=== PATIENT | female | born 1965 | race Caucasian/White ===

== ENCOUNTER 2016-07-09 14:52 | Inpatient (IN) | payer OTHER ==
[~2016-07-09] VITALS: Ht 157.5 cm; Wt 78.0 kg
[~2016-07-09 14:52] MED LIST: FERR325C PO; HYDR-3498 PO; LEVO150T67 PO; LORA-441 PO; MEDR10TA2 PO; METO50TA16 PO; NAPR-688 PO; RANI150T9 PO; SIMV20TA97 PO
[2016-07-09] MEDS ORDERED: NITROGLYCERIN 2% 1 GM OINT PKT TD STA (19:01)
[2016-07-09] MEDS ORDERED: ASPIRIN 81 MG TAB PO STA (19:01)
[2016-07-09] MEDS ORDERED: NITROGLYCERIN (SL) 0.4 MG TAB SL PRN (19:30)
--- NOTE | 2016-07-09 19:36 | RADRPT ---
PROCEDURE: CR, chest CLINICAL INDICATION: Chest pain. TECHNIQUE: AP chest. COMPARISON: Chest, 01/13/2016. FINDINGS: The heart is not enlarged. There is no acute infiltrate in the lungs. No pleural effusion. IMPRESSION: 1. Unremarkable chest x-ray. RPTAT: GG .French Phillips MD, Date Time Electronically viewed and signed by .French Phillips MD, on 07/09/2016 19:36 .Y/
[2016-07-09 19:51] LABS: BASOPHILS % 0.3 % (0.0-2.0); CONDITION 1; EOSINOPHILS # 0.1 10^3/ul (0.0-0.5); EOSINOPHILS % 0.8 % (0.0-7.0); HEMATOCRIT 42.5 % (37.0-47.0); HEMOGLOBIN 14.3 g/dl (12.0-16.0); LYMPHOCYTES # 4.1 10^3/ul (0.8-2.9); LYMPHOCYTES % 27.2 % (15.0-51.0); MEAN CORPUSCULAR HEMOGLOBIN 29.5 pg (29.0-33.0); MEAN CORPUSCULAR HGB CONC 33.6 g/dl (32.0-37.0); MEAN PLATELET VOLUME 7.8 fl (7.4-10.4); MONOCYTE # 1.1 10^3/ul (0.3-0.9); MONOCYTES % 7.2 % (0.0-11.0); NEUTROPHIL # 9.8 10^3/ul (1.6-7.5); NEUTROPHILS % 64.5 % (39.0-77.0); PLATELET COUNT 478 10^3/UL (140-440); RED BLOOD COUNT 4.83 10^6/ul (4.20-5.40); RED CELL DISTRIBUTION WIDTH 13.6 % (11.5-14.5); UNCORRECTED WBC 15.3 10^3/ul (4.8-10.8); WHITE BLOOD COUNT 15.3 10^3/ul (4.8-10.8)
[2016-07-09 19:55] LABS: CHLORIDE 104 mmol/L (97-110)
[2016-07-09 19:56] LABS: POTASSIUM 3.9 mmol/L (3.5-5.1); SODIUM 147 mmol/L (135-144)
[2016-07-09 19:58] LABS: ANION GAP 21 (8-16); CARBON DIOXIDE 26 mmol/L (21-31); CREATININE 0.62 mg/dl (0.44-1.00)
[2016-07-09 19:59] LABS: BLOOD UREA NITROGEN 11 mg/dl (7-20); CALCIUM 9.6 mg/dl (8.4-10.2); GLUCOSE 89 mg/dl (70-220)
[2016-07-09 20:01] LABS: INR 0.94; PARTIAL THROMBOPLASTIN TIME 28.3 Sec (25.0-35.0); PROTIME 12.6 Sec (12.2-14.2)
[2016-07-09 20:15] LABS: TROPONIN-I < 0.012 ng/ml (0.00-0.12)
[2016-07-09] MEDS ORDERED: ONDANSETRON 4 MG INJ IV PRN (20:30)
[2016-07-09] MEDS ORDERED: ACETAMINOPHEN 325 MG TAB PO PRN (20:30)
--- NOTE | 2016-07-09 21:03 | ERA ---
ER Documentation Chief Complaint Date/Time DATE: 07/09/16 TIME: 21:01 Chief Complaint headache and neck pain non traumatic and left arm pain. no trauma HPI Patient is a 51-year-old female with hypertension who presents with chest pain. The patient started with left-sided chest pain and left-sided arm pain for the past few days. She had headache and neck pain as well. Today the pain was worse. The pain is constant. She tried "a pain med" but does not know what it was. Upon review of old medical records this is the patient's third visit to the ER since 2014. Her primary doctor is Dr. Nicole Cuenca. ROS All systems reviewed and are negative except as per history of present illness. Medications Home Meds Reported Medications Metoprolol Succinate* (Toprol XL*) 50 Mg Tab.er.24h, 50 MG PO BID, #30 TAB 01/13/16 Lorazepam* (Ativan*) 0.5 Mg Tablet, 0.5 MG PO DAILY for PRN, #30 TAB 01/13/16 Levothyroxine Sodium* (Levothyroxine Sodium*) 150 Mcg Tablet, 150 MCG PO AC BREAKFAST, TAB 12/05/14 Discontinued Reported Medications Simvastatin* (Zocor*) 20 Mg Tablet, 20 MG PO QHS, #30 TAB 01/13/16 Discontinued Scripts Ranitidine Hcl* (Zantac*) 150 Mg Tablet, 150 MG PO BID Y for EPIGASTRIC PAIN, # 30 TAB Prov:KASANDRACRISTHIAN DO 01/13/16 Hydrocodone Bit-Acetaminophen* ([place]*) 5-325 Mg Tab, 1 TAB PO Q6 Y for PAIN, # 7 TAB Prov:KASANDRACRISTHIAN DO 01/13/16 Naproxen* (Naproxen*) 500 Mg Tablet, 500 MG PO BID, #20 TAB Prov:KASANDRACRISTHIAN DO 01/13/16 Medroxyprogesterone Acetate* (Provera*) 10 Mg Tablet, 10 MG PO DAILY for 5 Days , TAB Prov:ALIX RIVERA MD 12/05/14 Ferrous Sulfate (Iron) 325 Mg Capsr, 325 MG PO BID, #60 Prov:ALIX RIVERA MD 12/05/14 Allergies Allergies: Coded Allergies: No Known Allergy (Unverified , 07/09/16) PMhx/Soc Medical and Surgical Hx: pt denies Surgical Hx History of Surgery: No Anesthesia Reaction: No Hx Neurological Disorder: No Hx Respiratory Disorders: No Hx Cardiac Disorders: Yes (HTN,CHOLESTEROL) Hx Psychiatric Problems: No Hx Miscellaneous Medical Probl: Yes (ANXIETY) Hx Alcohol Use: No Hx Substance Use: No Hx Tobacco Use: No Smoking Status: Never smoker FmHx Family History: No coronary disease, No diabetes Physical Exam Vitals Vital Signs Date Time Temp Pulse Resp B/P Pulse Ox O2 Delivery O2 Flow Rate FiO2 07/09/16 19:05 98.5 114 20 185/79 97 Room Air 07/09/16 14:59 98.5 116 20 190/81 98 Physical Exam Const: Mild distress secondary to pain Head: Atraumatic Eyes: Normal Conjunctiva ENT: Normal External Ears, Nose and Mouth. Neck: Full range of motion..~ No meningismus. Resp: Clear to auscultation bilaterally Cardio: Regular rate and rhythm, no murmurs Abd: Soft, non tender, non distended. Normal bowel sounds Skin: No petechiae or rashes Back: No midline or flank tenderness Ext: No cyanosis, or edema Neur: Awake and alert Psych: Normal Mood and Affect Result Diagram: 07/09/16193407/09/161934 Results 24 hrs Laboratory Tests Test 07/09/16 19:35 Activated Partial Thromboplast Time 28.3Sec Anion Gap 21 Basophils # 0.010^3/ul Basophils % 0.3% Blood Urea Nitrogen 11mg/dl Calcium Level 9.6mg/dl Carbon Dioxide Level 26mmol/L Chloride Level 104mmol/L Creatinine 0.62mg/dl Eosinophils # 0.110^3/ul Eosinophils % 0.8% Glucose Level 89mg/dl Hematocrit 42.5% Hemoglobin 14.3g/dl INR International Normalized Ratio 0.94 Lymphocytes # 4.110^3/ul Lymphocytes % 27.2% Mean Corpuscular Hemoglobin 29.5pg Mean Corpuscular Hemoglobin Concent 33.6g/dl Mean Corpuscular Volume 88.0fl Mean Platelet Volume 7.8fl Monocytes # 1.110^3/ul Monocytes % 7.2% Neutrophils # 9.810^3/ul Neutrophils % 64.5% Nucleated Red Blood Cells # 0.010^3/ul Nucleated Red Blood Cells % 0.0/100WBC Platelet Count 72724^3/UL Potassium Level 3.9mmol/L Prothrombin Time 12.6Sec Prothrombin Time Ratio 1.0 Red Blood Count 4.8310^6/ul Red Cell Distribution Width 13.6% Sodium Level 147mmol/L Troponin I < 0.012ng/ml White Blood Count 15.310^3/ul Current Medications Medications (Trade) Dose Ordered Sig/Terry Route PRN Reason Start Time Stop Time Status Last Admin Dose Admin Aspirin (Aspirin) 162 mg ONCE STAT PO 07/09/16 19:01 07/09/16 19:02 DC 07/09/16 19:49 Nitroglycerin (Nitroglycerin 2% Oint) 1 inch ONCE STAT TD 07/09/16 19:01 07/09/16 19:02 DC 07/09/16 19:50 Nitroglycerin (Nitroglycerin (Sl Tab) 0.4 Mg) 1 tab Q5M UP TO 3 DOSES PRN SL CHEST PAIN 07/09/16 19:30 Ondansetron HCl (Zofran Inj) 4 mg ER BRIDGE PRN IV NAUSEA AND/OR VOMITING 07/09/16 20:30 07/10/16 20:29 Acetaminophen (Tylenol Tab) 650 mg ER BRIDGE PRN PO MILD PAIN/FEVER 07/09/16 20:30 07/10/16 20:29 Procedures/MDM EKG read by me: Rate/Rhythm: Sinus tachycardia at a rate of 118 Intervals: Normal Impression: Sinus tachycardia without evidence of ischemia Chest x-ray negative per radiology. Patient is a 51-year-old female with hypertension who presents with chest pain and left-sided arm pain. I am concerned for possible acute coronary syndrome. The patient was given aspirin and nitroglycerin. She will be admitted to Dr. Sheets from the panel team as her primary doctor does not admit here. The patient will be admitted to a telemetry bed. At this point I doubt pneumonia, pneumothorax, pulmonary embolism, or aortic dissection. Departure Diagnosis: Primary Impression: Chest pain Qualified Code: R07.9 - Chest pain, unspecified type Condition: GLADYS Loaiza MD Jul 09, 2016 21:03
[2016-07-09 22:30] VITALS: TEMP 98.5
[2016-07-09 22:54] VITALS: PULSE 97; Ht 157.5 cm; Wt 78.0 kg
[2016-07-10] VITALS (12 sets, daily range): BP systolic 109–127; BP diastolic 64–74; PULSE 78–106; RESP 16–18
[2016-07-10 02:21] LABS: CREATINE KINASE 92 IU/L (23-200)
[2016-07-10 02:30] LABS: CK-MB 0.57 ng/ml (0.0-2.4)
[2016-07-10 02:38] LABS: TROPONIN-I < 0.012 ng/ml (0.00-0.12)
[2016-07-10] MEDS ORDERED: ALBUTEROL/IPRATROPIUM (NEB) 3 ML AMP HHN PRN (04:30)
[2016-07-10] MEDS ORDERED: LORAZEPAM 0.5 MG TAB PO PRN (04:30)
[2016-07-10] MEDS ORDERED: morphine 2 MG INJ IV PRN (04:30)
[2016-07-10] MEDS ORDERED: NACL 0.9% 3 ML SYG IV SCH (04:30)
[2016-07-10] MEDS ORDERED: ONDANSETRON 4 MG INJ IV PRN (04:30)
[2016-07-10] MEDS ORDERED: ACETAMINOPHEN 325 MG TAB PO PRN (04:30)
[2016-07-10] MEDS ORDERED: NITROGLYCERIN (SL) 0.4 MG TAB SL PRN (04:30)
--- NOTE | 2016-07-10 06:58 | HP ---
DATE OF ADMISSION: 07/09/2016 TIME SEEN: 2300 CHIEF COMPLAINT: Chest pain. HISTORY OF PRESENT ILLNESS: The patient is a 51-year-old female with a history of hypertension, dys lipidemia and hypothyroidism, who presented to the emergency department with a chief complaint of ch est pain. Pain is left-sided, described as sharp and tightness, is nonradiating. She reports that the pain started 3 weeks ago and has been progressively getting worse. The patient is unsure if the re is any exertional components to her chest pain. She denied shortness of breath, palpitations, ab dominal pain, urinary symptoms or lightheadedness. She did, however, report headache and neck pain. She denied trauma. Of note the patient was seen here in the ER about 6 months ago for chest pain and was discharged from the ER as it was felt it was not cardiac because pain was reproducible on pa lpation. Her first troponin is negative and EKG shows sinus tachycardia with a rate of 118. When she presented to the ER today, her blood pressure was 190/81, heart rate 116, respiratory rate 20, temperature 98.5, oxygen saturation 98% on room air. Laboratory value shows a WBC of 15.3. Sod ium 147. Chest x-ray was read as unremarkable. She was given aspirin and nitroglycerin, Tylenol an d Zofran while she was in the ER. REVIEW OF SYSTEMS: A 12-point review of systems was performed and is negative except as mentioned i n HPI. PAST MEDICAL HISTORY: As per HPI. PAST SURGICAL HISTORY: Denies. SOCIAL HISTORY: Denies history of tobacco, alcohol or illicit drug use. ALLERGIES: NO KNOWN DRUG ALLERGIES. HOME MEDICATIONS: 1. Toprol-XL. 2. Levothyroxine. 3. Ativan. PHYSICAL EXAMINATION: VITAL SIGNS: Blood pressure 170/82, heart rate 105, respiratory rate 20, temperature 98.5, oxygen s aturation 98% on room air. GENERAL: No acute distress, answering questions appropriately, able to speak in full sentences. HEENT: Normocephalic, atraumatic. No scleral icterus. Pupils are reactive to light. Extraocular muscles intact. CARDIOVASCULAR: Tachycardic with regular rhythm. LUNGS: Clear. ABDOMEN: Soft, nontender, nondistended. Positive bowel sounds. EXTREMITIES: No edema. NEUROLOGIC: No focal deficits. LABORATORY: WBC 15.3. Sodium 147, otherwise CBC and BMP are within normal limits. First troponin is negative. IMPRESSION: 1. Chest pain, need to rule out acute coronary syndrome. 2. Hypertensive urgency. 3. Systemic inflammatory response syndrome, as evidenced by tachycardia and leukocytosis. 4. Mild hypernatremia. PLAN: Continue telemetry monitoring. She will be continued with her home beta abiodun with adjustm ent as needed. She will also be placed on aspirin, statin, oxygen and as needed nitroglycerin and m orphine. Will obtain a 2D echo and will trend her troponins. Given the presentation of SIRS, will send a urinalysis and urine culture and will consider a blood culture as well. Will continue her ho me Synthroid and will check her TSH as well as a free T4 in the morning. Abnormality of her thyroid function could also explain the sinus tachycardia. Further workup and management per clinical course. Dictated By: ROMAINE FERRARA/DIMPLE Conf#: [id number] DID#: [id number]
[2016-07-10 07:55] LABS: CREATINE KINASE 51 IU/L (23-200)
[2016-07-10 08:05] LABS: CK-MB < 0.22 ng/ml (0.0-2.4)
[2016-07-10 08:09] LABS: TROPONIN-I < 0.010 ng/ml (0.00-0.12)
[2016-07-10 08:23] LABS: BASOPHIL # 0.1 10^3/ul (0.0-0.1); BASOPHILS % 0.5 % (0.0-2.0); EOSINOPHILS # 0.1 10^3/ul (0.0-0.5); EOSINOPHILS % 0.5 % (0.0-7.0); HEMATOCRIT 38.4 % (37.0-47.0); HEMOGLOBIN 13.1 g/dl (12.0-16.0); LYMPHOCYTES % 17.7 % (15.0-51.0); MEAN CORPUSCULAR HEMOGLOBIN 30.1 pg (29.0-33.0); MEAN CORPUSCULAR HGB CONC 34.3 g/dl (32.0-37.0); MEAN CORPUSCULAR VOLUME 87.7 fl (82.0-101.0); MEAN PLATELET VOLUME 7.9 fl (7.4-10.4); MONOCYTE # 0.9 10^3/ul (0.3-0.9); MONOCYTES % 7.5 % (0.0-11.0); NEUTROPHIL # 8.5 10^3/ul (1.6-7.5); NEUTROPHILS % 73.8 % (39.0-77.0); PLATELET COUNT 456 10^3/UL (140-440); RED BLOOD COUNT 4.37 10^6/ul (4.20-5.40); RED CELL DISTRIBUTION WIDTH 12.7 % (11.5-14.5); UNCORRECTED WBC 11.6 10^3/ul (4.8-10.8); WHITE BLOOD COUNT 11.6 10^3/ul (4.8-10.8)
[2016-07-10 08:28] LABS: ALBUMIN 4.4 g/dl (3.3-4.9)
[2016-07-10 08:29] LABS: POTASSIUM 3.9 mmol/L (3.5-5.1)
[2016-07-10 08:31] LABS: ALBUMIN/GLOBULIN RATIO 1.12; BILIRUBIN,INDIRECT 0.7 mg/dl (0-1.1); BILIRUBIN,TOTAL 0.7 mg/dl (0.2-1.3); CALCIUM 9.2 mg/dl (8.4-10.2); CREATININE 0.62 mg/dl (0.44-1.00); TOTAL PROTEIN 8.3 g/dl (6.1-8.1)
[2016-07-10 08:32] LABS: CHOL/HDL RATIO 6.9 RATIO; MAGNESIUM 2.1 mg/dl (1.7-2.5)
[2016-07-10 08:39] LABS: ADD UMIC YES; URINE BILIRUBIN (Dip) NEGATIVE (NEGATIVE); URINE BLOOD (Dip) TRACE (NEGATIVE); URINE COLOR LT. YELLOW (YELLOW); URINE GLUCOSE (Dip) NEGATIVE (NEGATIVE); URINE KETONES (Dip) NEGATIVE (NEGATIVE); URINE LEUKOCYTE ESTERASE (Dip) 2+ (NEGATIVE); URINE NITRITE (Dip) NEGATIVE (NEGATIVE); URINE TOTAL PROTEIN (Dip) NEGATIVE (NEGATIVE); URINE UROBILINOGEN (Dip) 0.2 E.U./dL (0.1-1.0)
[2016-07-10 08:47] LABS: CONDITION 1
[2016-07-10 08:58] LABS: THYROID STIMULATING HORMONE 0.018 MIU/L (0.465-4.680)
[2016-07-10] MEDS: LEVOTHYROXINE 150 MCG TAB PO SCH (09:03)
[2016-07-10] MEDS: METOPROLOL (XL) 50 MG TAB PO SCH ×2 (09:05→20:38)
[2016-07-10] MEDS: ENOXAPARIN 40 MG/0.4 ML SYG SC SCH (09:05)
[2016-07-10 09:56] LABS: SQUAMOUS EPITHELIAL CELL,UR FEW; URINE RBCS 0-2 /HPF (0)
[2016-07-10 09:57] LABS: BACTERIA,URINE MODERATE; MUCUS,URINE FEW
--- NOTE | 2016-07-10 10:27 | PN ---
Date/Time of Note Date/Time of Note DATE: 07/10/16 TIME: 10:19 Assessment/Plan VTE Prophylaxis VTE Prophylaxis Intervention: LMWH Lines/Catheters IV [facility]ter Type [facility]from [facility] [place] Assessment/Plan Chief Complaint/Hosp Course Assessment and plan 1. Chest pain. Patient still reports having some intermittent chest pain on her left side that radiates to her arm. She also does report having some chest pain on exertion. We will get machine buffer to follow. Follow up on echocardiogram. 2. Hypertensive urgency. Continue on antihypertensives and we'll adjust as needed 3. Mild sepsis secondary to UTI. Patient noted with leukocytosis as well as elevated heart rate. Patient also noted with positive leukocyte esterase test with moderate bacteria seen in the urine. We'll follow-up on urine culture. Remains afebrile at present. We'll provide antibiotics according to culture 4. Obesity. Weight reduction advised 5. Low TSH. Follow up on T3 and T4 6. Dyslipidemia. Continue on statin medication DVT prophylaxis: Lovenox GERD prophylaxis: PPI Discussed plan of care with Dr. Mckeon Problems: Subjective 24 Hr Interval Summary Free Text/Dictation Still reports having some intermittent chest pain. Does report that he goes to her left arm at times. Family at bedside Exam/Review of Systems Vital Signs Vitals Vital Signs Date Time Temp Pulse Resp B/P Pulse Ox O2 Delivery O2 Flow Rate FiO2 07/10/16 08:19 106 07/10/16 08:15 98.4 17 127/74 96 07/10/16 04:12 Room Air Exam General: No acute signs or symptoms of distress Eyes: pupils equal round, Anicteric sclera Neck: Supple nontender, no JVD Cardiac: S1, S2 auscultated, regular rhythm and rate Pulmonary: No coarse rhonchi or breathing auscultated GI: Abdomen soft nontender nondistended, bowel sounds active Extremities: No edema bilateral lower extremities Skin: Clean dry and intact Neurologic: Alert to person place and time and situation Results Result Diagram: 07/10/16 0652 07/10/16 0652 Results 24 hrs Laboratory Tests Test 07/09/16 19:35 07/10/16 01:42 07/10/16 06:05 07/10/16 06:44 Activated Partial Thromboplast Time 28.3 Anion Gap 21 H Basophils # 0.0 Basophils % 0.3 Blood Urea Nitrogen 11 Calcium Level 9.6 Carbon Dioxide Level 26 Chloride Level 104 Creatinine 0.62 Eosinophils # 0.1 Eosinophils % 0.8 Glucose Level 89 Hematocrit 42.5 Hemoglobin 14.3 INR International Normalized Ratio 0.94 Lymphocytes # 4.1 H Lymphocytes % 27.2 Mean Corpuscular Hemoglobin 29.5 Mean Corpuscular Hemoglobin Concent 33.6 Mean Corpuscular Volume 88.0 Mean Platelet Volume 7.8 Monocytes # 1.1 H Monocytes % 7.2 Neutrophils # 9.8 H Neutrophils % 64.5 Nucleated Red Blood Cells # 0.0 Nucleated Red Blood Cells % 0.0 Platelet Count 478 H Potassium Level 3.9 Prothrombin Time 12.6 Prothrombin Time Ratio 1.0 Red Blood Count 4.83 Red Cell Distribution Width 13.6 Sodium Level 147 H Troponin I < 0.012 < 0.012 < 0.010 White Blood Count 15.3 #H Creatine Kinase 92 51 Creatine Kinase Index 0.6 0.4 Creatinine Kinase MB (Mass) 0.57 < 0.22 Urine Bacteria MODERATE Urine Bilirubin NEGATIVE Urine Clarity SLIGHTLY CLOUDY Urine Color LT. YELLOW Urine Glucose NEGATIVE Urine Hemoglobin TRACE Urine Ketones NEGATIVE Urine Leukocyte Esterase 2+ H Urine Microscopic RBC 0-2 Urine Microscopic WBC 2-5 Urine Mucus FEW Urine Nitrite NEGATIVE Urine Specific [place] 1.025 Urine Squamous Epithelial Cells FEW Urine Total Protein NEGATIVE Urine Urobilinogen 0.2 E.U./dL Urine pH 6.0 Test 07/10/16 06:52 Alanine Aminotransferase (ALT/SGPT) 29 Albumin 4.4 Albumin/Globulin Ratio 1.12 Alkaline Phosphatase 107 Anion Gap 18 H Aspartate Amino Transf (AST/SGOT) 29 Basophils # 0.1 Basophils % 0.5 Blood Urea Nitrogen 12 Calcium Level 9.2 Carbon Dioxide Level 28 Chloride Level 103 Cholesterol Level 208 H Cholesterol/HDL Ratio 6.9 Creatinine 0.62 Direct Bilirubin 0.00 Eosinophils # 0.1 Eosinophils % 0.5 Globulin 3.90 H Glucose Level 90 HDL Cholesterol 30 L Hematocrit 38.4 Hemoglobin 13.1 Hemoglobin A1c 5.3 Indirect Bilirubin 0.7 LDL Cholesterol, Calculated 152 Lymphocytes # 2.0 Lymphocytes % 17.7 Magnesium Level 2.1 Mean Corpuscular Hemoglobin 30.1 Mean Corpuscular Hemoglobin Concent 34.3 Mean Corpuscular Volume 87.7 Mean Platelet Volume 7.9 Monocytes # 0.9 Monocytes % 7.5 Neutrophils # 8.5 H Neutrophils % 73.8 Nucleated Red Blood Cells # 0.0 Nucleated Red Blood Cells % 0.0 Platelet Count 456 H Potassium Level 3.9 Red Blood Count 4.37 Red Cell Distribution Width 12.7 Sodium Level 145 H Thyroid Stimulating Hormone (TSH) 0.018 L Total Bilirubin 0.7 Total Protein 8.3 H Triglycerides Level 129 White Blood Count 11.6 #H Medications Medications Current Medications Lorazepam (Ativan) 0.5 mg Q8H PRN PO ANXIETY; Start 07/10/16 at 04:30 Ondansetron HCl (Zofran Inj) 4 mg Q6H PRN IV NAUSEA AND/OR VOMITING; Start at 04:30 Nitroglycerin (Nitroglycerin (Sl Tab) 0.4 Mg) 1 tab Q5M PRN SL CHEST PAIN; Start 07/10/16 at 04:30 Acetaminophen (Tylenol Tab) 650 mg Q6H PRN PO PAIN LEVEL 1-3 OR FEVER Last administered on 07/10/16 09:04; Admin Dose 650 MG; Start 07/10/16 at 04:30 Morphine Sulfate (morphine) 2 mg Q4H PRN IV PAIN LEVEL 7-10; Start 07/10/16 at 04:30 Enoxaparin Sodium (Lovenox) 40 mg DAILY SC Last administered on 07/10/16 09:05 ; Admin Dose 40 MG; Start 07/10/16 at 09:00 Metoprolol Succinate (Toprol Xl) 50 mg BID PO Last administered on 07/10/16 09 :05; Admin Dose 50 MG; Start 07/10/16 at 09:00 Atorvastatin Calcium (Lipitor) 20 mg HS PO ; Start 07/10/16 at 21:00 CHELSEY CHURCH Jul 10, 2016 10:27
--- NOTE | 2016-07-10 11:17 | RADRPT ---
Echocardiogram Report Patient Name: MICHAEL OSORIO Gender: Female Date: 1965 Study Date: 10-Jul-2016 Musical Instrument Maker: Indra Freed [facility] Location: [id number] Ref. Physician: ROMAINE GARCIA Quality: Good Procedures: Transthoracic echocardiogram with complete 2D, M-Mode, and doppler examination. Indications: Chest Pain. Shortness of breath. 2D/M Mode Doppler Measurement Value Normal Ranges Measurement Value Normal Ranges LVIDd 2D 4.1 3.5 - 5.6 cm AV Peak Eflix 1.3 m/sec LVIDs 2D 2.5 2.1 - 4.1 cm AV Peak PG 6.3 mmHg LVPWd 2D 0.8 0.6 - 1.1 cm LVOT Peak Felix 1.1 m/sec IVSd 2D 0.8 0.6 - 1.1 cm LVOT Peak PG 5.1 mmHg AoR Diam 2D 2.5 2.0 - 3.7 cm EDV 2D 75.3 cm3 ESV 2D 14.8 cm3 LA Dimen 2D 2.7 2.3 - 4.0 cm Findings Left Ventricle: Normal left ventricular systolic function. Normal left ventricular cavity size. Normal left ventricular wall thickness. Ejection fraction is visually estimated at 65 %. Abnormal Diastolic Function. Right Ventricle: Normal right ventricular size. Normal right ventricular systolic function. Left Atrium: The left atrium is normal in size. Right Atrium: The right atrium is normal in size. Mitral Valve: Normal appearance and function of the mitral valve with trace physiologic regurgitation. Aortic Valve: Normal appearance of the aortic valve. No significant aortic stenosis or insufficiency. Tricuspid Valve: Normal appearance of the tricuspid valve. Unable to obtain RVSP due to minimal presence of tricuspid regurgitation. Pericardium: Normal pericardium with no significant pericardial effusion. Aorta: Normal aortic root. IVC: Normal size and normal respiratory collapse consistent with normal right atrial pressure. Conclusions Normal left ventricular systolic function. Normal left ventricular cavity size. Normal left ventricular wall thickness. Ejection fraction is visually estimated at 65 %. Abnormal Diastolic Function. Normal right ventricular size. Normal right ventricular systolic function. The left atrium is normal in size. The right atrium is normal in size. No significant valvular stenosis or regurgitation seen. Normal pericardium with no significant pericardial effusion. Electronically Signed By: Mukund Iyer 10-Jul-2016 11:16:46 -0800 Patient Name: MICHAEL OSORIO Study Date: 10-Jul-2016 [id number]
--- NOTE | 2016-07-10 11:38 | CONS ---
Date/Time of Note Date/Time of Note DATE: 07/10/16 TIME: 11:31 Assessment/Plan Assessment/Plan Additional Assessment/Plan Chest wall, shoulder and wrist pain Preserved ejection fraction Hypertension Leukocytosis with abnormal urinalysis -Our patient's pain appears chest wall and shoulder and wrist pain. Pain is exacerbated with palpation and movements. No exertional chest pain or shortness of breath. Serial cardiac enzymes have remained negative, echocardiogram is unremarkable and ECG within normal limits. Would evaluate other noncardiac causes of patient's symptoms. No further inpatient cardiac workup needed at the current time. Consultation Date/Type/Reason Admit Date/Time Jul 09, 2016 at 20:18 Type of Consultation: cv Reason for Consultation Chest pain Hx of Present Illness This is a 51 year old female with past medical history of hypertension, thyroid dysfunction, anxiety who presents with off-and-on sharp left sided chest pain, mid chest pain, bilateral shoulder and bilateral wrist pain. Symptoms are worse with left arm movements, leaning on left side. Symptoms are relieved with leaning on right side. Exertion does not worsen or improve symptoms. There is no associated shortness of breath, dizziness or lightheadedness. She was told in the past that she has inflammation of her muscles and bones. She has been treated with medications in the past with improvement of the symptoms. She denies any abdominal pain, nausea or dizziness. She does complain of intermittent urinary symptoms of burning. 12 point review of systems was performed with all pertinent positives and negatives mentioned above and all else is negative Past Medical History Anxiety Medical History: hypertension, hypothyroid Past Surgical History Past Surgical Hx: no surgical history Family History Significant Family History: no pertinent family hx Social History Alcohol Use: none Smoking Status: Never smoker Exam/Review of Systems Vital Signs Vitals Vital Signs Date Time Temp Pulse Resp B/P Pulse Ox O2 Delivery O2 Flow Rate FiO2 07/10/16 08:19 106 07/10/16 08:15 98.4 17 127/74 96 07/10/16 04:12 Room Air Exam No apparent distress Constitutional: alert, obese, oriented Head: normocephalic Neck: supple Respiratory: clear to auscultation, normal air movement Cardiovascular: other (S1-S2 heard, no murmurs appreciated), regular rate and rhythm Gastrointestinal: bowel sounds, non-tender, soft Musculoskeletal: other (tenderness to palpation left side of chest wall, bilateral shoulders and bilateral wrists. Pain with movement of bilateral arms.) Extremities: other (no edema) Results Result Diagram: 07/10/16 0652 07/10/16 0652 Results 24 hrs Laboratory Tests Test 07/09/16 19:35 07/10/16 01:42 07/10/16 06:05 07/10/16 06:44 Activated Partial Thromboplast Time 28.3 Anion Gap 21 H Basophils # 0.0 Basophils % 0.3 Blood Urea Nitrogen 11 Calcium Level 9.6 Carbon Dioxide Level 26 Chloride Level 104 Creatinine 0.62 Eosinophils # 0.1 Eosinophils % 0.8 Glucose Level 89 Hematocrit 42.5 Hemoglobin 14.3 INR International Normalized Ratio 0.94 Lymphocytes # 4.1 H Lymphocytes % 27.2 Mean Corpuscular Hemoglobin 29.5 Mean Corpuscular Hemoglobin Concent 33.6 Mean Corpuscular Volume 88.0 Mean Platelet Volume 7.8 Monocytes # 1.1 H Monocytes % 7.2 Neutrophils # 9.8 H Neutrophils % 64.5 Nucleated Red Blood Cells # 0.0 Nucleated Red Blood Cells % 0.0 Platelet Count 478 H Potassium Level 3.9 Prothrombin Time 12.6 Prothrombin Time Ratio 1.0 Red Blood Count 4.83 Red Cell Distribution Width 13.6 Sodium Level 147 H Troponin I < 0.012 < 0.012 < 0.010 White Blood Count 15.3 #H Creatine Kinase 92 51 Creatine Kinase Index 0.6 0.4 Creatinine Kinase MB (Mass) 0.57 < 0.22 Urine Bacteria MODERATE Urine Bilirubin NEGATIVE Urine Clarity SLIGHTLY CLOUDY Urine Color LT. YELLOW Urine Glucose NEGATIVE Urine Hemoglobin TRACE Urine Ketones NEGATIVE Urine Leukocyte Esterase 2+ H Urine Microscopic RBC 0-2 Urine Microscopic WBC 2-5 Urine Mucus FEW Urine Nitrite NEGATIVE Urine Specific [place] 1.025 Urine Squamous Epithelial Cells FEW Urine Total Protein NEGATIVE Urine Urobilinogen 0.2 E.U./dL Urine pH 6.0 Test 07/10/16 06:52 Alanine Aminotransferase (ALT/SGPT) 29 Albumin 4.4 Albumin/Globulin Ratio 1.12 Alkaline Phosphatase 107 Anion Gap 18 H Aspartate Amino Transf (AST/SGOT) 29 Basophils # 0.1 Basophils % 0.5 Blood Urea Nitrogen 12 Calcium Level 9.2 Carbon Dioxide Level 28 Chloride Level 103 Cholesterol Level 208 H Cholesterol/HDL Ratio 6.9 Creatinine 0.62 Direct Bilirubin 0.00 Eosinophils # 0.1 Eosinophils % 0.5 Globulin 3.90 H Glucose Level 90 HDL Cholesterol 30 L Hematocrit 38.4 Hemoglobin 13.1 Hemoglobin A1c 5.3 Indirect Bilirubin 0.7 LDL Cholesterol, Calculated 152 Lymphocytes # 2.0 Lymphocytes % 17.7 Magnesium Level 2.1 Mean Corpuscular Hemoglobin 30.1 Mean Corpuscular Hemoglobin Concent 34.3 Mean Corpuscular Volume 87.7 Mean Platelet Volume 7.9 Monocytes # 0.9 Monocytes % 7.5 Neutrophils # 8.5 H Neutrophils % 73.8 Nucleated Red Blood Cells # 0.0 Nucleated Red Blood Cells % 0.0 Platelet Count 456 H Potassium Level 3.9 Red Blood Count 4.37 Red Cell Distribution Width 12.7 Sodium Level 145 H Thyroid Stimulating Hormone (TSH) 0.018 L Total Bilirubin 0.7 Total Protein 8.3 H Triglycerides Level 129 White Blood Count 11.6 #H Medications Medications Current Medications Lorazepam (Ativan) 0.5 mg Q8H PRN PO ANXIETY; Start 07/10/16 at 04:30 Ondansetron HCl (Zofran Inj) 4 mg Q6H PRN IV NAUSEA AND/OR VOMITING; Start at 04:30 Nitroglycerin (Nitroglycerin (Sl Tab) 0.4 Mg) 1 tab Q5M PRN SL CHEST PAIN; Start 07/10/16 at 04:30 Acetaminophen (Tylenol Tab) 650 mg Q6H PRN PO PAIN LEVEL 1-3 OR FEVER Last administered on 07/10/16 09:04; Admin Dose 650 MG; Start 07/10/16 at 04:30 Morphine Sulfate (morphine) 2 mg Q4H PRN IV PAIN LEVEL 7-10; Start 07/10/16 at 04:30 Enoxaparin Sodium (Lovenox) 40 mg DAILY SC Last administered on 07/10/16 09:05 ; Admin Dose 40 MG; Start 07/10/16 at 09:00 Metoprolol Succinate (Toprol Xl) 50 mg BID PO Last administered on 07/10/16 09 :05; Admin Dose 50 MG; Start 07/10/16 at 09:00 Atorvastatin Calcium (Lipitor) 20 mg HS PO ; Start 07/10/16 at 21:00 Fish Oil (Fish Oil) 1,000 mg BID PO ; Start 07/10/16 at 11:00 Pantoprazole (Protonix Tab) 40 mg DAILY@06 PO ; Start 07/10/16 at 11:00 Procedures Procedures ECG with sinus tachycardia at 118 bpm, QRS 70 ms, no significant ischemic STT wave abnormalities Mukund Iyer DO Jul 10, 2016 11:38
[2016-07-10 11:50] LABS: T3 UPTAKE 39.6 % (23.5-40.5)
[2016-07-10 11:51] LABS: FREE T3 4.83 pg/ml (2.77-5.27)
[2016-07-10] MEDS: FISH OIL 1,000 MG CAP PO SCH ×2 (12:09→20:36)
[2016-07-10] MEDS: PANTOPRAZOLE (EC) 40 MG TAB PO SCH (12:09)
[2016-07-10] MEDS ORDERED: DOCUSATE SODIUM 100 MG CAP PO PRN (15:30)
[2016-07-10] MEDS ORDERED: ATORVASTATIN 20 MG TAB PO SCH (21:00)
[2016-07-11] VITALS (9 sets, daily range): BP systolic 110–127; BP diastolic 62–75; PULSE 58–90; RESP 18–20
[2016-07-11] MEDS: LEVOTHYROXINE 150 MCG TAB PO SCH (06:10)
[2016-07-11] MEDS: PANTOPRAZOLE (EC) 40 MG TAB PO SCH (06:10)
[2016-07-11 07:50] LABS: BASOPHIL # 0.1 10^3/ul (0.0-0.1); BASOPHILS % 0.6 % (0.0-2.0); EOSINOPHILS # 0.1 10^3/ul (0.0-0.5); EOSINOPHILS % 0.7 % (0.0-7.0); HEMOGLOBIN 13.6 g/dl (12.0-16.0); LYMPHOCYTES # 2.7 10^3/ul (0.8-2.9); LYMPHOCYTES % 23.5 % (15.0-51.0); MEAN CORPUSCULAR HEMOGLOBIN 29.7 pg (29.0-33.0); MEAN CORPUSCULAR HGB CONC 33.9 g/dl (32.0-37.0); MEAN CORPUSCULAR VOLUME 87.4 fl (82.0-101.0); MEAN PLATELET VOLUME 7.7 fl (7.4-10.4); MONOCYTE # 0.9 10^3/ul (0.3-0.9); MONOCYTES % 8.1 % (0.0-11.0); NEUTROPHIL # 7.7 10^3/ul (1.6-7.5); NEUTROPHILS % 67.1 % (39.0-77.0); PLATELET COUNT 468 10^3/UL (140-440); RED BLOOD COUNT 4.58 10^6/ul (4.20-5.40); RED CELL DISTRIBUTION WIDTH 13.1 % (11.5-14.5); UNCORRECTED WBC 11.4 10^3/ul (4.8-10.8); WHITE BLOOD COUNT 11.4 10^3/ul (4.8-10.8)
[2016-07-11 07:51] LABS: POTASSIUM 4.3 mmol/L (3.5-5.1)
[2016-07-11 07:54] LABS: CREATININE 0.7 mg/dl (0.44-1.00)
[2016-07-11 07:55] LABS: CALCIUM 9.3 mg/dl (8.4-10.2); MAGNESIUM 2.3 mg/dl (1.7-2.5); PHOSPHORUS 4.3 mg/dl (2.5-4.9)
[2016-07-11 07:56] LABS: CONDITION 1
[2016-07-11] MEDS: METOPROLOL (XL) 50 MG TAB PO SCH (09:04)
[2016-07-11] MEDS: FISH OIL 1,000 MG CAP PO SCH (09:04)
[2016-07-11] MEDS: ENOXAPARIN 40 MG/0.4 ML SYG SC SCH (09:07)
[2016-07-11] MEDS ORDERED: ATOR20TA65 PO (14:40)
[2016-07-11] MEDS ORDERED: METO50TA16 PO (14:40)
[2016-07-11] MEDS ORDERED: CIPR500T4 PO (14:40)
[2016-07-11] MEDS ORDERED: OMEG1CAP55 PO (14:40)
--- NOTE | 2016-07-11 14:46 | PDOCDIS ---
Discharge Instructions DIAGNOSIS Discharge Diagnosis: 1. chest pain 2. hypertensive urgency 3. uti 4. obesity 5. dyslipidemia CONDITION Patient Condition: Stable HOME CARE INSTRUCTIONS: Special Diet: cardiac FOLLOW UP/APPOINTMENTS Appointments 1. Follow-up with her primary care provider within a week OTHER ORDERS: Other Orders: 1. Call 911 if you have worsening chest pain and shortness of breath CHELSEY CHURCH Jul 11, 2016 14:46
--- NOTE | 2016-07-11 16:28 | DS ---
Date/Time of Note Date/Time of Note DATE: 07/11/16 TIME: 16:26 Discharge Summary Admission/Discharge Info Admit Date/Time Jul 09, 2016 at 20:18 Discharge Date/Time Final Diagnosis 1. Chest pain. 2. Hypertensive urgency. 3. Mild sepsis secondary to UTI. 4. Obesity. 5. Dyslipidemia. Patient Condition: Stable Consults 1. Dr. Mukund Iyer Hospital Course This is a 51-year-old female with history of hypertension, dyslipidemia, hypothyroidism, who came to [facility] due to reports of chest pain. Patient did report her chest pain was left-sided and described as being sharp and tight nonradiating. She did state that it started 3 weeks prior to admission and progressively had been getting worse. She is unsure if she has these pains due to exertion. Of note she was recently seen at [facility] 6 months ago for similar issue. At that time was felt the patient pain was more musculoskeletal. Patient nevertheless did have echocardiogram done which showed her to have an ejection fraction of 65%. She was also seen by student support services director and we did trend her troponins which were all essentially negative. Most the patient's symptoms were likely induced by stress and as such we did provide the patient with anxiolytic medications. Patient was noted with some hypertensive urgency and we did continue her on antihypertensives. She did adjust well to this. She also did have noted urinary tract infection with positive leukocyte esterase test which was provided with appropriate antibiotics. During the course of stay she did improve. She was optimized medically with her cardiovascular medications. She was cleared by student support services director on the day of her discharge. She was advised about weight reduction for her obesity. The plan of care was discussed with the patient and patient did verbalize understanding. On the day of discharge patient was in stable condition Discussed plan of care with Dr. Mckeon Disposition: Home Discharge process time is 40 minutes Home Meds Active Scripts Ciprofloxacin Hcl* (Ciprofloxacin Hcl*) 500 Mg Tablet, 500 MG PO BID, #14 TAB Prov:CHELSEY CHURCH 07/11/16 Borger-3/Dha/Epa/Fish Oil (FISH OIL EC 1,000 MG SOFTGEL) 1 Each Capsule., 1000 MG PO BID for 30 Days Prov:CHELSEY CHURCH 07/11/16 Atorvastatin Calcium (Atorvastatin Calcium) 20 Mg Tablet, 20 MG PO HS for 30 Days, TAB Prov:CHELSEY CHURCH 07/11/16 Metoprolol Succinate* (Toprol XL*) 50 Mg Tab.er.24h, 50 MG PO BID, #60 TAB Prov:CHELSEY CHURCH 07/11/16 Reported Medications Lorazepam* (Ativan*) 0.5 Mg Tablet, 0.5 MG PO DAILY for PRN, #30 TAB 01/13/16 Levothyroxine Sodium* (Levothyroxine Sodium*) 150 Mcg Tablet, 150 MCG PO AC BREAKFAST, TAB 12/05/14 Discontinued Reported Medications Simvastatin* (Zocor*) 20 Mg Tablet, 20 MG PO QHS, #30 TAB 01/13/16 Discontinued Scripts Ranitidine Hcl* (Zantac*) 150 Mg Tablet, 150 MG PO BID Y for EPIGASTRIC PAIN, # 30 TAB Prov:KASANDRACRISTHIAN DO 01/13/16 Hydrocodone Bit-Acetaminophen* (Richards*) 5-325 Mg Tab, 1 TAB PO Q6 Y for PAIN, # 7 TAB Prov:CRISTHIAN SLAUGHTER DO 01/13/16 Naproxen* (Naproxen*) 500 Mg Tablet, 500 MG PO BID, #20 TAB Prov:KASANDRACRISTHIAN DO 01/13/16 Medroxyprogesterone Acetate* (Provera*) 10 Mg Tablet, 10 MG PO DAILY for 5 Days , TAB Prov:ALIX RIVERA MD 12/05/14 Ferrous Sulfate (Iron) 325 Mg Capsr, 325 MG PO BID, #60 Prov:ALIX RIVERA MD 12/05/14 Follow-up Plan CONDITION Patient Condition: Stable HOME CARE INSTRUCTIONS: Special Diet: cardiac FOLLOW UP/APPOINTMENTS Appointments 1. Follow-up with her primary care provider within a week OTHER ORDERS: Other Orders: 1. Call 911 if you have worsening chest pain and shortness of breath Pending Labs Laboratory Tests Test 07/11/16 06:42 Anion Gap 16 (8-16) Basophils # 0.110^3/ul (0.0-0.1) Basophils % 0.6% (0.0-2.0) Blood Urea Nitrogen 14mg/dl (7-20) Calcium Level 9.3mg/dl (8.4-10.2) Carbon Dioxide Level 27mmol/L (21-31) Chloride Level 104mmol/L (97-110) Creatinine 0.70mg/dl (0.44-1.00) Eosinophils # 0.110^3/ul (0.0-0.5) Eosinophils % 0.7% (0.0-7.0) Glucose Level 97mg/dl (70-220) Hematocrit 40.0% (37.0-47.0) Hemoglobin 13.6g/dl (12.0-16.0) Lymphocytes # 2.710^3/ul (0.8-2.9) Lymphocytes % 23.5% (15.0-51.0) Magnesium Level 2.3mg/dl (1.7-2.5) Mean Corpuscular Hemoglobin 29.7pg (29.0-33.0) Mean Corpuscular Hemoglobin Concent 33.9g/dl (32.0-37.0) Mean Corpuscular Volume 87.4fl (82.0-101.0) Mean Platelet Volume 7.7fl (7.4-10.4) Monocytes # 0.910^3/ul (0.3-0.9) Monocytes % 8.1% (0.0-11.0) Neutrophils # 7.710^3/ul (1.6-7.5) Neutrophils % 67.1% (39.0-77.0) Nucleated Red Blood Cells # 0.010^3/ul (0.0-0.0) Nucleated Red Blood Cells % 0.0/100WBC (0.0-0.0) Phosphorus Level 4.3mg/dl (2.5-4.9) Platelet Count 95293^3/UL (140-440) Potassium Level 4.3mmol/L (3.5-5.1) Red Blood Count 4.5810^6/ul (4.20-5.40) Red Cell Distribution Width 13.1% (11.5-14.5) Sodium Level 143mmol/L (135-144) White Blood Count 11.410^3/ul (4.8-10.8) CHELSEY CHURCH Jul 11, 2016 16:28
== END 2016-07-11 17:27 | disposition home or self-care (01) | DRG 313 ==
LOC: E/R 14:52 → MS4 20:18
PROVIDERS: ADMIT Internal Medicine; ATTEND Internal Medicine
DX: R07.9 Chest pain, unspecified (principal); E87.0 Hyperosmolality and hypernatremia; N39.0 Urinary tract infection, site not specified; I16.0 Hypertensive urgency; E78.5 Hyperlipidemia, unspecified; E66.9 Obesity, unspecified; Z68.31 Body mass index [BMI] 31.0-31.9, adult; E03.8 Other specified hypothyroidism
CPT/HCPCS: 36415; 71010; 80048; 80053; 80061; 81001; 81003; 82550; 82553; 83036; 83735; 84100; 84436; 84439; 84443; 84479; 84481; 84484; 85025; 85610; 85730; 87040; 87086; 93005; 93306; J1650

== ENCOUNTER 2018-07-03 11:25 | Emergency (ER) | payer OTHER ==
[~2018-07-03] VITALS: Wt 78.2 kg
[~2018-07-03 11:25] MED LIST changes: +ATOR20TA65 PO; +CIPR500T4 PO; -FERR325C PO; -HYDR-3498 PO; -LEVO150T67 PO; +LEVO150T7 PO; -MEDR10TA2 PO; +METO-319 PO; -METO50TA16 PO; -NAPR-688 PO; +OMEG-157 PO; -RANI150T9 PO; -SIMV20TA97 PO
[2018-07-03] MEDS ORDERED: IBUPROFEN 600 MG TAB PO ONE (14:00)
[2018-07-03] MEDS ORDERED: MECLIZINE 12.5 MG TAB PO ONE (14:00)
[2018-07-03] MEDS ORDERED: MECL12.574 PO (15:08)
[2018-07-03 15:21] VITALS: BP 123/72; PULSE 18; RESP 18
--- NOTE | 2018-07-03 15:28 | ERD ---
ER Documentation Chief Complaint Chief Complaint HEADACHE WITH DIZZINESS X 1 DAY HPI 53-year-old female with a history of hypertension presenting with complaints of dizziness since yesterday. The dizziness is intermittent, worse with movement of her head. She describes as room spinning dizziness. It is also worse with bending over. When she gets this dizziness, it is associated with a dull headache. She has had multiple episodes like this before but has never received medications for it. She states that she has mentioned it to her primary care doctor but nothing has been done. She denies any associated fever, chills, vision disturbance, focal weakness or numbness. No recent illnesses. ROS All systems reviewed and are negative except as per history of present illness. Medications Home Meds Active Scripts Meclizine Hcl* (Antivert*) 12.5 Mg Tab, 25 MG PO Q6H PRN for DIZZINESS, #20 TAB Prov:SELWYN MURPHY MD 07/03/18 Posey-3/Dha/Epa/Fish Oil (FISH OIL EC 1,000 MG SOFTGEL) 1 Each Capsule.dr, 1000 MG PO BID for 30 Days Prov:CHELSEY CHURCH 07/11/16 Atorvastatin Calcium (Atorvastatin Calcium) 20 Mg Tablet, 20 MG PO HS for 30 Days, TAB Prov:CHELSEY CHURCH 07/11/16 Metoprolol Succinate* (Toprol XL*) 50 Mg Tab.er.24h, 50 MG PO BID, #60 TAB Prov:CHELSEY CHURCH 07/11/16 Reported Medications Lorazepam* (Ativan*) 0.5 Mg Tablet, 0.5 MG PO DAILY for PRN, #30 TAB 01/13/16 Levothyroxine Sodium* (Levothyroxine Sodium*) 150 Mcg Tablet, 150 MCG PO AC BREAKFAST, TAB 12/05/14 Discontinued Scripts Ciprofloxacin Hcl* (Ciprofloxacin Hcl*) 500 Mg Tablet, 500 MG PO BID, #14 TAB Prov:CHELSEY CHURCH 07/11/16 Allergies Allergies: Coded Allergies: No Known Allergy (Unverified , 07/09/16) PMhx/Soc History of Surgery: Yes Anesthesia Reaction: No Hx Neurological Disorder: No Hx Respiratory Disorders: No Hx Cardiac Disorders: Yes (hypertension, high cholesterol) Hx Psychiatric Problems: No Hx Miscellaneous Medical Probl: No Hx Alcohol Use: No Hx Substance Use: No Hx Tobacco Use: No Smoking Status: Never smoker FmHx Family History: No diabetes Physical Exam Vitals Vital Signs Date Temp Pulse Resp B/P (MAP) Pulse Ox O2 O2 Flow FiO2 Time Delivery Rate 07/03/18 18 18 123/72 98 Room Air 15:21 (89) 07/03/18 98.1 115 18 151/78 99 11:28 (102) Physical Exam Const: No acute distress Head: Atraumatic Eyes: Normal Conjunctiva, PERRLA, EOMI, no nystagmus ENT: Normal External Ears, Nose and Mouth. TMs normal bilaterally Neck: Full range of motion. No meningismus. Resp: Clear to auscultation bilaterally Cardio: Regular rate and rhythm, no murmurs Abd: Soft, non tender, non distended. Normal bowel sounds Skin: No petechiae or rashes Back: No midline or flank tenderness Ext: No cyanosis, or edema Neur: Awake and alert, oriented, normal speech, cranial nerves intact, strength and sensations intact in all 4 extremities. Normal gait. Normal cerebellar exam Psych: Normal Mood and Affect Results 24 hrs Laboratory Tests Test 07/03/18 14:11 07/03/18 14:12 Bedside Urine pH (LAB) 5.0 Bedside Urine Protein (LAB) Negative Bedside Urine Glucose (UA) Negative Bedside Urine Ketones (LAB) Negative Bedside Urine Blood Trace-lysed Bedside Urine Nitrite (LAB) Negative Bedside Urine Leukocyte Esterase (L Negative POC Beta HCG, Qualitative NEGATIVE Current Medications Medications Dose Sig/Terry Start Time Status Last (Trade) Ordered Route PRN Stop Time Admin Dose Reason Admin Ibuprofen 600 mg ONCE ONCE 07/03/18 DC 07/03/18 (Motrin) PO 14:00 14:14 07/03/18 14:01 Meclizine 25 mg ONCE ONCE 07/03/18 DC 07/03/18 HCl PO 14:00 14:14 (Antivert) 07/03/18 14:01 Procedures/MDM EMERGENT LABS AND DIAGNOSTIC STUDIES: Lab Results above were reviewed and interpreted by me. Urine dip shows no evidence of infection negative 12-lead EKG was interpreted by Vazquez Murphy MD: Normal Sinus Rhythm Normal axis Normal intervals No acute ST or T wave changes suggestive of acute ischemia or STEMI. Initial Nursing notes reviewed. Previous Medical Records requested via the Electronic Health Record. EMERGENCY DEPARTMENT COURSE / MEDICAL DECISION MAKING: Patient is presenting with likely peripheral vertigo. Doubt stroke or intracranial hemorrhage. Vitals were initially notable for tachycardia but had resolved once I saw the patient. Her neurologic exam is nonfocal. Meclizine was given with improvement of her symptoms. Prescription for meclizine given for home to use as needed. Follow-up with PCP recommended within the next few days. Return precautions discussed. Patient's blood pressure was elevated (>120/80) but appears stable without evidence of hypertensive emergency or urgency. The patient was counseled about the risks of hypertension and urged to pursue outpatient monitoring and therapy within a week with their primary care physician. Departure Diagnosis: Primary Impression: Vertiginous syndrome Condition: Stable Patient Instructions: Vertigo, Unspecified SELWYN MURPHY MD Jul 03, 2018 15:28
== END 2018-07-03 15:40 | disposition home or self-care (01) ==
LOC: E/R 11:25
DX: H81.93 Unspecified disorder of vestibular function, bilateral (principal); I10 Essential (primary) hypertension
CPT/HCPCS: 81003; 81025; Z7502; Z7610; 93005